=== PATIENT | male | born 1990 | race Caucasian/White ===

== ENCOUNTER → 2024-06-09 07:40 | Outpatient (REF) | payer OTHER, SELFPAY | LOC: RAD 07:40 | PROVIDERS: ATTENDING PHYSICIAN Registered Nurse | DX: R06.02 Shortness of breath (principal) | CPT/HCPCS: 71046 ==

== ENCOUNTER 2025-03-13 12:15 | Emergency (ER) | payer BC, SELFPAY ==
[2025-03-13 12:24] VITALS: BP 124/95
[2025-03-13 12:58] LABS: Hematocrit 44.2 % (39.0-52.0); Hemoglobin 15.3 g/dL (13.0-18.0); Mean Corp Hgb Conc. 34.6 g/dL (33.0-37.0); Mean Corpuscular Volume 87.9 fL (80.0-94.0); Nucleated Red Blood Cells % 0 % (-); Platelet Count 305 10^3/uL (130-400); Red Cell Dist. Width 12.0 % (11.5-14.5)
[2025-03-13 13:13] LABS: ALT (SGPT) 67 U/L (0-50); AST (SGOT) 43 U/L (17-59); Albumin 5.0 g/dl (3.5-5.0); Alkaline Phosphatase 79 U/L (38-126); Blood Urea Nitrogen 11 mg/dl (9-20); Calcium 9.3 mg/dl (8.4-10.2); Carbon Dioxide 25 mmol/L (22-30); Chloride 101 mmol/L (98-107); Glucose 112 mg/dl (70-99); Lipase 90 U/L (23-300); Potassium 3.9 mmol/L (3.5-5.1); Sodium 132 mmol/L (135-145); Total Protein 7.9 g/dl (6.3-8.2); eGFR > 60.00
[2025-03-13 13:19] LABS: Urine Character Clear (Clear)
[2025-03-13 13:38] LABS: Urine Red Blood Cell 0-2 /HPF (0-2); Urine Squamous Cell 0-2 /LPF (Few); Urine White Cell None Seen /HPF (0-5)
[2025-03-13 14:22] VITALS: BMI 18.2
[2025-03-13] MEDS: TORADOL 15 MG IV (14:50)
[2025-03-13] MEDS: PROTONIX IV 40 MG IV (14:51)
[2025-03-13] MEDS: NSS 1000 IV (14:52)
--- NOTE | 2025-03-13 15:01 | ED.GENMED ---
History of Present Illness
General
Chief Complaint: Flank Pain
Source: patient
Exam Limitations: none
Time Seen by Provider: 03/13/25 14:15
Nursing documentation reviewed up to this point in time: agreed with
History of Present Illness
History of Present Illness:
Patient presents to ED secondary to intermittent left flank pain over the past 2 weeks, now associated with chills sensation at home. Patient states that symptoms started after he moved heavy furniture. As such, initially attributed his pain to
something musculoskeletal. However, symptoms have worsened over the past 24 hours. Denies direct trauma. Denies nausea or vomiting. However, patient is reporting loose, nonbloody diarrhea over the past 24 hours as well. Denies sick contact.
Denies recent travel. Denies recent change in medications or diet. Patient does have remote history of kidney stones, when he was a teenager.
Review of Systems
Review of Systems
Allergies reviewed?: Yes
All Other Systems: ROS reviewed and negative except as documented in HPI and ROS
Constitutional: Reports no symptoms
ABD/GI: Reports diarrhea; Denies abdominal pain, nausea or vomiting
: Reports flank pain and dark urine; Denies dysuria, frequency or difficulty voiding
Musculoskeletal: Reports no symptoms
Skin: Reports no symptoms
Neurological: Reports no symptoms
Phy Exam
Physical Exam
Physical Exam:
Physical Exam
General: mild painful distress, not acutely ill. afebrile
Head: nc/at. eomi
Neck: supple. normal range of motion.
Heart: s1/s2 regular rate and rhythm
Lungs: no acute respiratory distress. clear bilaterally
Abdomen: normal bowel sounds. mild epigastric/RUQ tenderness to palpation. no distention
Neuro: alert and oriented x 3. no focal neurological deficits
Skin: no rash
Psychiatric: well kept. interactive and cooperative
Extremities: no edema. no calf tenderness
Course
Orders/Labs/Results
Orders:
Orders
03/13/25 12:44
Complete Blood Count/With Diff Urgent
Comprehensive Metabolic Panel Urgent
Lipase Urgent
Monotest Urgent
Comment: MONO SPOT ADDED ON BY FLOOR 2:25PM 03-13-25
03/13/25 12:46
UA Reflex to Culture [Urinalysis Reflex To Culture] Urgent
Date Specimen was Collected: 03/13/25
Time Specimen was Collected: 12:45
Urine Microscopic Reflex Cult Urgent
03/13/25 14:25
Add On- LAB Urgent
Tests Added?: mono spot test
03/13/25 14:26
0.9% Sodium Chloride 1000 ml [Nss] 1,000 ml IV BOLUS
Ketorolac [Toradol] 15 mg IV NOW STA
Pantoprazole [Protonix IV] 40 mg IV NOW STA
US Abdomen Complete/Upper Urgent
Comment:
Reason For Exam: left flank pain
03/13/25 16:31
CT Abd/pel Without Iv Or Oral Urgent
Comment:
Reason For Exam: left flank pain
Abnormal Lab Results
03/13/25 03/13/25
12:44 12:46
WBC 12.5 H 10^3/uL
(4.8-10.8)
Abs Immat Gran (auto) 0.1 H 10^3/uL
(0-0.05)
Absolute Neuts (auto) 10.1 H 10^3/uL
(1.4-6.5)
Neutrophils % 80.9 H %
(42.2-75.2)
Lymphocytes % 13.2 L %
(20.5-51.1)
Sodium 132 L mmol/L
(135-145)
Glucose 112 H mg/dl
(70-99)
Total Bilirubin 2.7 H mg/dl
(0.2-1.3)
ALT 67 H U/L
(0-50)
Ur Occult Blood Reflex 1+ A
(Negative)
Urine Bacteria (Reflex) Few A
(Negative)
03/13/25 12:44
03/13/25 12:44
Vital Signs
Initial and Last Documented VS:
Initial Vital Signs
Temp Pulse Resp BP Pulse Ox
98.0 F 98 18 124/95 98
03/13/25 12:24 03/13/25 12:24 03/13/25 12:24 03/13/25 12:24 03/13/25 12:24
Last Documented Vital Signs
Temp Pulse Resp BP Pulse Ox
98.5 F 67 15 113/89 98
03/13/25 19:27 03/13/25 19:27 03/13/25 19:27 03/13/25 19:27 03/13/25 19:27
MDM/Problems Addressed
MDM/Problems Addressed:
History, exam, and CT scan consistent with renal colic. Otherwise, patient remains afebrile, hemodynamically stable, and with significant improvement in symptoms after treatment. As such, patient will be discharged home in stable condition, to the
care of his family, with urine strainer, as well as recommendations for an outpatient urology consultation. Return precautions provided, i.e. fever/worsening pain/inability to urinate.
*Pulse Oximetry
SaO2: 98
Oxygen Mode of Delivery: Room air
Patient hypoxic: no
*Critical Care Note
Total Time (30-74mins, 75-104mins- exclusive of procedures): Not Applicable
ED Attending Note
-
Portions of this chart may have been created with voice recognition software.� Occasional wrong word or��sound alike� substitutions may have occurred due to the inherent limitations of voice recognition software.
Discharge Plan
Departure
Patient Disposition: Home (Routine Discharge)
Date of Disposition: 03/13/25
Time of Disposition: 19:32
Patient with high blood pressure during this ER visit?: No
Condition: Good
Discharge Problem:
Renal colic
Instructions: Renal Colic (DC), How to Strain Your Urine
Prescriptions:
New
ondansetron 4 mg Tablet,Disintegrating
4 mg PO TIDPRN PRN (Reason: nausea/vomiting) Qty: 10 0RF
oxycodone-acetaminophen [Percocet] 5-325 mg Tablet
1 tab PO Q6HPRN PRN (Reason: pain) Qty: 10 0RF
tamsulosin [Flomax] 0.4 mg Capsule
0.4 mg PO DAILY Qty: 7 0RF
Referrals:
Enmanuel Mccann Jr., MD [Active, Urology]
Aleyda Lozano MD [Family Provider, Family Practice]
Activity Restrictions/Additional Instructions:
As discussed, please follow-up with your primary care physician and/or referred urologist for further evaluation and treatment. Please return to ED with worsening symptoms, i.e. fever/worsening pain/vomiting/inability urinate. Your prescriptions
have been sent electronically to [facility] pharmacy in [place].
Interventions
Interventions:
*Risk Screen - Suicide Last Done: 03/13/25 12:24
*General Assessment Last Done: 03/13/25 19:27
*Neglect/Abuse Screening Last Done: 03/13/25 19:27
*ED- Fall Risk Assessment Last Done: 03/13/25 19:27
*ED COVID-19 Vaccine History Last Done: 03/13/25 19:27
*ED Influenza Vaccine History Last Done: 03/13/25 19:27
*Nursing Disposition Last Done: 03/13/25 20:06
XU-Bmhjmy-Xncwdgotwy Assessment Last Done: 03/13/25 19:27
ED-Male Genitourinary Assessment Last Done: 03/13/25 19:27
Discharge Date and Time
Discharge Date/Time: 03/13/25 19:55
Print Language: MALTESE
[2025-03-13 19:27] VITALS: BP 113/89
== END 2025-03-13 19:55 | disposition home or self-care (01) ==
LOC: EMR 12:15
PROVIDERS: Emergency Medicine; EMERGENCY PHYSICIAN Emergency Medicine; FAMILY PHYSICIAN Family Medicine
DX: N13.2 Hydronephrosis with renal and ureteral calculous obstruction (principal)
CPT/HCPCS: 96374; 96375; 96361; 99284; 74176; 76700; 80053; 81003; 81015; 83690; 85025; 86308

== ENCOUNTER → 2025-05-08 08:49 | Outpatient (REF) | payer BC, SELFPAY | LOC: RAD 08:49 | PROVIDERS: ATTENDING PHYSICIAN Family Medicine | DX: R07.89 Other chest pain (principal) | CPT/HCPCS: 71101 ==